=== PATIENT | male | born 1985 | race Caucasian/White ===

== ENCOUNTER → 2021-03-06 | Day surgery (SDC) | payer BC ==
[~2021-03-06] MED LIST: Bupivacaine 0.5% 30 ML SDV ONE; Dexamethasone 4 MG/ML 5 ML MDV ONE; HYDROmorphone 0.5 MG/0.5 ML Syringe IVPUSH PRN; HYDROmorphone 1 MG/ML Syringe IVPUSH ONE; Iopamidol 612 MG/ML 100 ML Bottle IVPUSH ONE; Iopamidol 612 MG/ML 50 ML SDV IVPUSH ONE; Ketorolac 30 MG/ML SDV IVPUSH STA; Lactated Ringers 1,000 ML IV ONE; Lactated Ringers 1,000 ML ONE; Levofloxacin/Dextrose 5%-Water 750 MG in Premix Bag 1 BAG IV ONE; Lidocaine 1% 4 ML ONE; Midazolam 1 MG/ML 2 ML SDV ONE; Ondansetron 4 MG/2 ML SDV IVPUSH ONE; Ondansetron 4 MG/2 ML SDV IVPUSH PRN; Ondansetron 4 MG/2 ML SDV ONE; Propofol 200 MG/20 ML SDV ONE; Rocuronium 50 MG/5 ML Vial ONE; Sodium Chloride 0.9% 10 ML Syringe FLUSH PRN; fentaNYL 100 MCG/2 ML SDV IVPUSH PRN; fentaNYL 250 MCG/5 ML SDV ONE; metroNIDAZOLE/Normal Saline 500 MG in Premix Bag 1 BAG IV ONE
--- NOTE | 2021-03-06 17:21 | EDM.PDOC ---
<Margret Jasmine - Last Filed: 03/06/21 18:24> ED HPI GENERAL MEDICAL PROBLEM - General Chief Complaint: Abdominal Pain Stated Complaint: ABDOMINAL PAIN Time Seen by Provider: 03/06/21 17:05 Source of Information: Reports: Patient History Limitations: Reports: No Limitations - History of Present Illness INITIAL COMMENTS - FREE TEXT/NARRATIVE: Mr. Marco Antonio Mata is a pleasant 35-year-old male who presents for right lower quadrant pain that suddenly started last night. He rates the pain of 7/10, describing it as "sharp". He reports the pain is so bad he can not walk. He has not had a bowel movement in 3 days, so he took stool softener today and that did not help. He denies a history of abdominal surgery. His last meal was this morning. Onset: Sudden, Other (Last night) Duration: Day(s): Location: Reports: Abdomen Quality: Reports: Sharp Right Abdominal Pain Score (Numeric/FACES): 7 - Related Data Allergies Allergy/AdvReac Type Severity Reaction Status Date / Time Penicillins Allergy Anaphylactic Verified 03/06/21 17:00 Shock Home Meds: Home Meds . [No Known Home Meds] 03/06/21 [History] Past Medical History - Past Health History Medical/Surgical History: Denies Medical/Surgical History Social & Family History - Tobacco Use Tobacco Use Status *Q: Current Every Day Tobacco User Years of Tobacco use: 20 Packs/Tins Daily: 1 - Caffeine Use Caffeine Use: Reports: Coffee, Soda - Recreational Drug Use Recreational Drug Use: No ED ROS GENERAL - Review of Systems Review Of Systems: Comprehensive ROS is negative, except as noted in HPI. Constitutional: Reports: No Symptoms HEENT: Reports: No Symptoms Respiratory: Reports: No Symptoms Cardiovascular: Reports: No Symptoms Endocrine: Reports: No Symptoms GI/Abdominal: Reports: Abdominal Pain, Constipation. Denies: Diarrhea : Reports: No Symptoms Musculoskeletal: Reports: No Symptoms Skin: Reports: No Symptoms Neurological: Reports: No Symptoms Psychiatric: Reports: No Symptoms Hematologic/Lymphatic: Reports: No Symptoms Immunologic: Reports: No Symptoms ED EXAM, GI/ABD - Physical Exam Exam: See Below Exam Limited By: No Limitations General Appearance: Alert, WD/WN, Moderate Distress, Other (Temp 96.9, Pulse 99, RR 20, BP 162/88, SpO2 100% on room air. ) Eyes: Bilateral: Normal Appearance (PERRL), EOMI Ears: Hearing Grossly Normal Nose: Normal Inspection Throat/Mouth: Normal Inspection Head: Atraumatic, Normocephalic Neck: Normal Inspection, Supple, Non-Tender Respiratory/Chest: No Respiratory Distress, Lungs Clear, Normal Breath Sounds Cardiovascular: Regular Rate, Rhythm GI/Abdominal Exam: Normal Bowel Sounds, Soft, Rebound, Tender (Positive Mcburney sign and Rovsing sign. ) Back Exam: Normal Inspection Extremities: Normal Inspection, Non-Tender Neurological: Alert, Oriented, Normal Cognition, No Motor/Sensory Deficits Psychiatric: Normal Affect, Normal Mood Skin Exam: Warm, Dry, Intact, Normal Color, No Rash Lymphatic: No Adenopathy Course - Re-Assessments/Exams Free Text/Narrative Re-Assessment/Exam: 03/06/21 17:23 Initial orders include IV insertion, 4mg Zofran, 1mg Dilaudid, CBC, CMP, Lipase, UA, COVID/Influenza swab, CT Abdomen/Pelvis with IV contrast. 03/06/21 18:13 Blood work reveals WBC 21.51, Plt 345. Influenza A&B, COVID, RSV normal. UA wnl. 03/06/21 18:24 Patient and updated on lab results. Patient states he is thirsty. 1,000mL LR bolus ordered. Departure - Departure Disposition: DC/Tfer to [facility] Clinical Impression: Acute appendicitis Qualifiers: Acute appendicitis type: with localized peritonitis Appendicitis gangrene presence: without gangrene Appendicitis perforation presence: without perforation Appendicitis abscess presence: without abscess Qualified Code(s): K35.30 - Acute appendicitis with localized peritonitis, without perforation or gangrene - Discharge Information Referrals: Paul Maldonado PA-C [Primary Care Provider] - Forms: ED Department Discharge <Dru Mario - Last Filed: 03/06/21 18:37> Course - Vital Signs Last Recorded V/S: Last Vital Signs Temp 96.9 F 03/06/21 16:59 Pulse 99 03/06/21 16:59 Resp 20 03/06/21 16:59 BP 162/88 H 03/06/21 16:59 Pulse Ox 100 03/06/21 16:59 - Orders/Labs/Meds Orders: Active Orders 24 hr Category Date Time Status Peripheral IV Care [RC] . DIRECTED Care 03/06/21 17:13 Active Abdomen Pelvis w Cont [CT] Stat Exams 03/06/21 17:14 Taken Lactated Ringers [Ringers, Lactated] 1,000 ml Med 03/06/21 18:23 Active IV .BOLUS Sodium Chloride 0.9% [Saline Flush] Med 03/06/21 17:13 Active 10 ml FLUSH ASDIRECTED PRN Sodium Chloride 0.9% [Saline Flush] Med 03/06/21 17:49 Active 10 ml FLUSH ONETIME PRN Peripheral IV Insertion Adult [OM.PC] Routine Oth 03/06/21 17:13 Ordered Medication Orders Lactated Ringer's (Ringers, Lactated) 1,000 mls @ 1,000 mls/hr IV .BOLUS ONE Stop: 03/06/21 19:22 Sodium Chloride (Sodium Chloride 0.9% 10 Ml Syringe) 10 ml FLUSH ASDIRECTED PRN PRN Reason: Keep Vein Open Sodium Chloride (Sodium Chloride 0.9% 10 Ml Syringe) 10 ml FLUSH ONETIME PRN PRN Reason: IV FLUSH Last Admin: 03/06/21 18:09 Dose: 10 ml Documented by: PATTIE Labs: Laboratory Tests 03/06/21 03/06/21 03/06/21 Range/Units 16:50 17:06 17:33 WBC 21.51 H (4.23-9.07) K/mm3 RBC 5.66 (4.63-6.08) M/mm3 Hgb 16.5 (13.7-17.5) gm/dl Hct 47.9 (40.1-51.0) % MCV 84.6 (79.0-92.2) fl MCH 29.2 (25.7-32.2) pg MCHC 34.4 (32.2-35.5) g/dl RDW Std Deviation 42.0 (35.1-43.9) fL Plt Count 345 H (163-337) K/mm3 MPV 9.4 (9.4-12.3) fl Neut % (Auto) 82.9 H (34.0-67.9) % Lymph % (Auto) 9.3 L (21.8-53.1) % [place] % (Auto) 7.0 (5.3-12.2) % Eos % (Auto) 0.4 L (0.8-7.0) Baso % (Auto) 0.1 (0.1-1.2) % Neut # (Auto) 17.84 H (1.78-5.38) K/mm3 Lymph # (Auto) 2.00 (1.32-3.57) K/mm3 [place] # (Auto) 1.50 H (0.30-0.82) K/mm3 Eos # (Auto) 0.08 (0.04-0.54) K/mm3 Baso # (Auto) 0.03 (0.01-0.08) K/mm3 Sodium (136-145) mEq/L Potassium (3.5-5.1) mEq/L Chloride (98-107) mEq/L Carbon Dioxide (21-32) mEq/L Anion Gap (5-15) BUN (7-18) mg/dL Creatinine (0.7-1.3) mg/dL Est Cr Clr Drug Dosing mL/min Estimated GFR (MDRD) (>60) mL/min BUN/Creatinine Ratio (14-18) Glucose (70-99) mg/dL Calcium (8.5-10.1) mg/dL Total Bilirubin (0.2-1.0) mg/dL AST (15-37) U/L ALT (16-63) U/L Alkaline Phosphatase (46-116) U/L Total Protein (6.4-8.2) g/dl Albumin (3.4-5.0) g/dl Globulin gm/dL Albumin/Globulin Ratio (1-2) Lipase (73-393) U/L Urine Color Yellow (Yellow) Urine Appearance Clear (Clear) Urine pH 5.5 (5.0-8.0) Ur Specific [place] > or = 1.030 (1.005-1.030) Urine Protein Negative (Negative) Urine Glucose (UA) Negative (Negative) Urine Ketones Negative (Negative) Urine Occult Blood Negative (Negative) Urine Nitrite Negative (Negative) Urine Bilirubin Negative (Negative) Urine Urobilinogen 0.2 (0.2-1.0) Ur Leukocyte Esterase Negative (Negative) Influenza Type A RNA Negative (NEGATIVE) RSV RNA (INAAT) Negative (NEGATIVE) Influenza Type B RNA Negative (NEGATIVE) SARS-CoV-2 RNA (ARIEL) Negative (NEGATIVE) 03/06/21 Range/Units 17:33 WBC (4.23-9.07) K/mm3 RBC (4.63-6.08) M/mm3 Hgb (13.7-17.5) gm/dl Hct (40.1-51.0) % MCV (79.0-92.2) fl MCH (25.7-32.2) pg MCHC (32.2-35.5) g/dl RDW Std Deviation (35.1-43.9) fL Plt Count (163-337) K/mm3 MPV (9.4-12.3) fl Neut % (Auto) (34.0-67.9) % Lymph % (Auto) (21.8-53.1) % [place] % (Auto) (5.3-12.2) % Eos % (Auto) (0.8-7.0) Baso % (Auto) (0.1-1.2) % Neut # (Auto) (1.78-5.38) K/mm3 Lymph # (Auto) (1.32-3.57) K/mm3 [place] # (Auto) (0.30-0.82) K/mm3 Eos # (Auto) (0.04-0.54) K/mm3 Baso # (Auto) (0.01-0.08) K/mm3 Sodium 139 (136-145) mEq/L Potassium 3.9 (3.5-5.1) mEq/L Chloride 102 (98-107) mEq/L Carbon Dioxide 25 (21-32) mEq/L Anion Gap 15.9 H (5-15) BUN 10 (7-18) mg/dL Creatinine 1.0 (0.7-1.3) mg/dL Est Cr Clr Drug Dosing 111.01 mL/min Estimated GFR (MDRD) > 60 (>60) mL/min BUN/Creatinine Ratio 10.0 L (14-18) Glucose 110 H (70-99) mg/dL Calcium 9.4 (8.5-10.1) mg/dL Total Bilirubin 0.8 (0.2-1.0) mg/dL AST 15 (15-37) U/L ALT 30 (16-63) U/L Alkaline Phosphatase 56 (46-116) U/L Total Protein 7.9 (6.4-8.2) g/dl Albumin 4.3 (3.4-5.0) g/dl Globulin 3.6 gm/dL Albumin/Globulin Ratio 1.2 (1-2) Lipase 41 L (73-393) U/L Urine Color (Yellow) Urine Appearance (Clear) Urine pH (5.0-8.0) Ur Specific [place] (1.005-1.030) Urine Protein (Negative) Urine Glucose (UA) (Negative) Urine Ketones (Negative) Urine Occult Blood (Negative) Urine Nitrite (Negative) Urine Bilirubin (Negative) Urine Urobilinogen (0.2-1.0) Ur Leukocyte Esterase (Negative) Influenza Type A RNA (NEGATIVE) RSV RNA (INAAT) (NEGATIVE) Influenza Type B RNA (NEGATIVE) SARS-CoV-2 RNA (ARIEL) (NEGATIVE) Meds: Medications Generic Name Dose Route Start Last Admin Trade Name Freq PRN Reason Stop Dose Admin Lactated Ringer's 1,000 mls @ 1,000 mls/hr 03/06/21 18:23 Ringers, Lactated IV 03/06/21 19:22 .BOLUS ONE Sodium Chloride 10 ml 03/06/21 17:13 Sodium Chloride 0.9% 10 Ml Syringe FLUSH ASDIRECTED PRN Keep Vein Open Sodium Chloride 10 ml 03/06/21 17:49 03/06/21 18:09 Sodium Chloride 0.9% 10 Ml Syringe FLUSH 10 ml ONETIME PRN Administration IV FLUSH Discontinued Medications Generic Name Dose Route Start Last Admin Trade Name Frekirstie PRN Reason Stop Dose Admin Hydromorphone HCl 1 mg 03/06/21 17:12 03/06/21 17:34 Hydromorphone 1 Mg/Ml Syringe IVPUSH 03/06/21 17:13 1 mg ONETIME ONE Administration Iopamidol 50 ml 03/06/21 17:49 03/06/21 18:09 Iopamidol 612 Mg/Ml 50 Ml Sdv IVPUSH 03/06/21 17:50 50 ml ONETIME ONE Administration Iopamidol 100 ml 03/06/21 17:49 03/06/21 18:09 Iopamidol 612 Mg/Ml 100 Ml Bottle IVPUSH 03/06/21 17:50 100 ml ONETIME ONE Administration Ondansetron HCl 4 mg 03/06/21 17:12 03/06/21 17:32 Ondansetron 4 Mg/2 Ml Sdv IVPUSH 03/06/21 17:13 4 mg ONETIME ONE Administration - Re-Assessments/Exams Free Text/Narrative Re-Assessment/Exam: 03/06/21 18:32 I examined the patient myself and I agree with Margret's assessment and plan. His WBC is elevated at 21.51. His anion gap was elevated at 15.9. His lipase is negative. His UA shows no UTI. His COVID, influenza and RSV are all negative. The CT shows acute appendicitis. NO evidence of complications. I called Dr Reed and he will come see the patient. Departure - Departure Time of Disposition: 18:40 Condition: Fair Sepsis Event Note (ED) - Focused Exam Vital Signs: Vital Signs Temp Pulse Resp BP Pulse Ox 03/06/21 16:59 96.9 F 99 20 162/88 H 100 - My Orders Last 24 Hours: My Active Orders 03/06/21 17:49 Sodium Chloride 0.9% [Saline Flush] 10 ml FLUSH ONETIME PRN 03/06/21 18:23 Lactated Ringers [Ringers, Lactated] 1,000 ml IV .BOLUS - Assessment/Plan Last 24 Hours: My Active Orders 03/06/21 17:49 Sodium Chloride 0.9% [Saline Flush] 10 ml FLUSH ONETIME PRN 03/06/21 18:23 Lactated Ringers [Ringers, Lactated] 1,000 ml IV .BOLUS
[2021-03-06 17:32] LABS: CORONAVIRUS COVID-19 NAA NEGATIVE (NEGATIVE)
--- NOTE | 2021-03-06 19:02 | PCM.HP.2 ---
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 The pain has been constant and getting progressively worse, located at the right lower quadrant. He has never had such pain. in the ER, WBC is 21,[address] scan shows acute appendicitis. He denies medical problems. He tolerated anesthesia well when he had a posterior spinal fusion a few years ago. He reports anaphylactic reaction to penicillin. He denies taking any prescription medication regularly. Right Abdominal Pain Score (Numeric/FACES): 7 - Related Data Allergies/Adverse Reactions: Allergies Allergy/AdvReac Type Severity Reaction Status Date / Time Penicillins Allergy Anaphylactic Verified 03/06/21 17:00 Shock Home Medications: Home Meds . [No Known Home Meds] 03/06/21 [History] Past Medical History - Past Health History Medical/Surgical History: Denies Medical/Surgical History Social & Family History - Tobacco Use Tobacco Use Status *Q: Current Every Day Tobacco User Years of Tobacco use: 20 Packs/Tins Daily: 1 - Caffeine Use Caffeine Use: Reports: Coffee, Soda - Recreational Drug Use Recreational Drug Use: No H&P Review of Systems - Review of Systems: Review Of Systems: See Below General: Reports: Malaise HEENT: Reports: No Symptoms Pulmonary: Reports: No Symptoms Cardiovascular: Reports: No Symptoms Gastrointestinal: Reports: Abdominal Pain Genitourinary: Reports: No Symptoms Musculoskeletal: Reports: No Symptoms Skin: Reports: No Symptoms Psychiatric: Reports: No Symptoms Neurological: Reports: No Symptoms Hematologic/Lymphatic: Reports: No Symptoms Immunologic: Reports: No Symptoms Exam - Exam Exam: See Below - Vital Signs Vital Signs: Last Vital Signs Temp 36.1 C 03/06/21 16:59 Pulse 99 03/06/21 16:59 Resp 20 03/06/21 16:59 BP 162/88 H 03/06/21 16:59 Pulse Ox 100 03/06/21 16:59 Weight: 123.377 kg - Exam General: Alert, Other (uncomfortable appearing) HEENT: Conjunctiva Clear Neck: Supple Lungs: Normal Respiratory Effort Cardiovascular: Regular Rate GI/Abdominal Exam: Soft, No Mass, Tender Rectal (Males) Exam: Deferred Extremities: Normal Inspection Skin: Warm, Dry Neuro Extensive - Mental Status: Alert, Oriented x3 Psychiatric: Normal Mood - Patient Data Lab Results Last 24 hrs: Laboratory Results - last 24 hr 03/06/21 03/06/21 03/06/21 Range/Units 16:50 17:06 17:33 WBC 21.51 H (4.23-9.07) K/mm3 RBC 5.66 (4.63-6.08) M/mm3 Hgb 16.5 (13.7-17.5) gm/dl Hct 47.9 (40.1-51.0) % MCV 84.6 (79.0-92.2) fl MCH 29.2 (25.7-32.2) pg MCHC 34.4 (32.2-35.5) g/dl RDW Std Deviation 42.0 (35.1-43.9) fL Plt Count 345 H (163-337) K/mm3 MPV 9.4 (9.4-12.3) fl Neut % (Auto) 82.9 H (34.0-67.9) % Lymph % (Auto) 9.3 L (21.8-53.1) % [place] % (Auto) 7.0 (5.3-12.2) % Eos % (Auto) 0.4 L (0.8-7.0) Baso % (Auto) 0.1 (0.1-1.2) % Neut # (Auto) 17.84 H (1.78-5.38) K/mm3 Lymph # (Auto) 2.00 (1.32-3.57) K/mm3 [place] # (Auto) 1.50 H (0.30-0.82) K/mm3 Eos # (Auto) 0.08 (0.04-0.54) K/mm3 Baso # (Auto) 0.03 (0.01-0.08) K/mm3 Sodium (136-145) mEq/L Potassium (3.5-5.1) mEq/L Chloride (98-107) mEq/L Carbon Dioxide (21-32) mEq/L Anion Gap (5-15) BUN (7-18) mg/dL Creatinine (0.7-1.3) mg/dL Est Cr Clr Drug Dosing mL/min Estimated GFR (MDRD) (>60) mL/min BUN/Creatinine Ratio (14-18) Glucose (70-99) mg/dL Calcium (8.5-10.1) mg/dL Total Bilirubin (0.2-1.0) mg/dL AST (15-37) U/L ALT (16-63) U/L Alkaline Phosphatase (46-116) U/L Total Protein (6.4-8.2) g/dl Albumin (3.4-5.0) g/dl Globulin gm/dL Albumin/Globulin Ratio (1-2) Lipase (73-393) U/L Urine Color Yellow (Yellow) Urine Appearance Clear (Clear) Urine pH 5.5 (5.0-8.0) Ur Specific [place] > or = 1.030 (1.005-1.030) Urine Protein Negative (Negative) Urine Glucose (UA) Negative (Negative) Urine Ketones Negative (Negative) Urine Occult Blood Negative (Negative) Urine Nitrite Negative (Negative) Urine Bilirubin Negative (Negative) Urine Urobilinogen 0.2 (0.2-1.0) Ur Leukocyte Esterase Negative (Negative) Influenza Type A RNA Negative (NEGATIVE) RSV RNA (INAAT) Negative (NEGATIVE) Influenza Type B RNA Negative (NEGATIVE) SARS-CoV-2 RNA (ARIEL) Negative (NEGATIVE) 03/06/21 Range/Units 17:33 WBC (4.23-9.07) K/mm3 RBC (4.63-6.08) M/mm3 Hgb (13.7-17.5) gm/dl Hct (40.1-51.0) % MCV (79.0-92.2) fl MCH (25.7-32.2) pg MCHC (32.2-35.5) g/dl RDW Std Deviation (35.1-43.9) fL Plt Count (163-337) K/mm3 MPV (9.4-12.3) fl Neut % (Auto) (34.0-67.9) % Lymph % (Auto) (21.8-53.1) % [place] % (Auto) (5.3-12.2) % Eos % (Auto) (0.8-7.0) Baso % (Auto) (0.1-1.2) % Neut # (Auto) (1.78-5.38) K/mm3 Lymph # (Auto) (1.32-3.57) K/mm3 [place] # (Auto) (0.30-0.82) K/mm3 Eos # (Auto) (0.04-0.54) K/mm3 Baso # (Auto) (0.01-0.08) K/mm3 Sodium 139 (136-145) mEq/L Potassium 3.9 (3.5-5.1) mEq/L Chloride 102 (98-107) mEq/L Carbon Dioxide 25 (21-32) mEq/L Anion Gap 15.9 H (5-15) BUN 10 (7-18) mg/dL Creatinine 1.0 (0.7-1.3) mg/dL Est Cr Clr Drug Dosing 111.01 mL/min Estimated GFR (MDRD) > 60 (>60) mL/min BUN/Creatinine Ratio 10.0 L (14-18) Glucose 110 H (70-99) mg/dL Calcium 9.4 (8.5-10.1) mg/dL Total Bilirubin 0.8 (0.2-1.0) mg/dL AST 15 (15-37) U/L ALT 30 (16-63) U/L Alkaline Phosphatase 56 (46-116) U/L Total Protein 7.9 (6.4-8.2) g/dl Albumin 4.3 (3.4-5.0) g/dl Globulin 3.6 gm/dL Albumin/Globulin Ratio 1.2 (1-2) Lipase 41 L (73-393) U/L Urine Color (Yellow) Urine Appearance (Clear) Urine pH (5.0-8.0) Ur Specific [place] (1.005-1.030) Urine Protein (Negative) Urine Glucose (UA) (Negative) Urine Ketones (Negative) Urine Occult Blood (Negative) Urine Nitrite (Negative) Urine Bilirubin (Negative) Urine Urobilinogen (0.2-1.0) Ur Leukocyte Esterase (Negative) Influenza Type A RNA (NEGATIVE) RSV RNA (INAAT) (NEGATIVE) Influenza Type B RNA (NEGATIVE) SARS-CoV-2 RNA (ARIEL) (NEGATIVE) Result Diagrams: 03/06/21 17:33 03/06/21 17:33 Sepsis Event Note - Focused Exam Vital Signs: Vital Signs Temp Pulse Resp BP Pulse Ox 03/06/21 16:59 36.1 C 99 20 162/88 H 100 Problem List Initiated/Reviewed/Updated: Yes Orders Last 24hrs: Active Orders 24 hr Category Date Time Status Peripheral IV Care [RC] . DIRECTED Care 03/06/21 17:13 Active NPO Now [Nothing per Oral Now Diet] [DIET] Diet 03/07/21 Breakfast Ordered Abdomen Pelvis w Cont [CT] Stat Exams 03/06/21 17:14 Taken Lactated Ringers [Ringers, Lactated] 1,000 ml Med 03/06/21 18:23 Active IV .BOLUS Levofloxacin/Dextrose 5%-Water [Levaquin in D5W 750 MG/ Med 03/06/21 18:57 Ordered 150 ML] 750 mg Premix Bag 1 bag IV ONETIME Sodium Chloride 0.9% [Saline Flush] Med 03/06/21 17:13 Active 10 ml FLUSH ASDIRECTED PRN Sodium Chloride 0.9% [Saline Flush] Med 03/06/21 17:49 Active 10 ml FLUSH ONETIME PRN metroNIDAZOLE/Normal Saline [Flagyl in NS 500 MG/100 ML Med 03/06/21 18:59 Ordered ] 500 mg Premix Bag 1 bag IV ONETIME Peripheral IV Insertion Adult [OM.PC] Routine Oth 03/06/21 17:13 Ordered Schedule Procedure [COMM] Routine Oth 03/06/21 18:59 Ordered Medication Orders Lactated Ringer's (Ringers, Lactated) 1,000 mls @ 1,000 mls/hr IV .BOLUS ONE Stop: 03/06/21 19:22 Last Admin: 03/06/21 18:42 Dose: 1,000 mls/hr Documented by: BIRDIE Levofloxacin/Dextrose 750 mg/ (Premix) 150 mls @ 100 mls/hr IV ONETIME ONE Stop: 03/06/21 20:26 Metronidazole 500 mg/ Premix 100 mls @ 100 mls/hr IV ONETIME ONE Stop: 03/06/21 19:58 Sodium Chloride (Sodium Chloride 0.9% 10 Ml Syringe) 10 ml FLUSH ASDIRECTED PRN PRN Reason: Keep Vein Open Sodium Chloride (Sodium Chloride 0.9% 10 Ml Syringe) 10 ml FLUSH ONETIME PRN PRN Reason: IV FLUSH Last Admin: 03/06/21 18:09 Dose: 10 ml Documented by: [email or web address] Assessment/Plan Comment:: acute appendicitis, plan for laparoscopic appendectomy - Mortality Measure Prognosis:: Good
--- NOTE | 2021-03-06 19:10 | PCM.PRNOTE ---
- Free Text/Narrative Note: Date: 03/06/2021 Operation: laparoscopic appendectomy Indication: acute appendicitis Surgeon: Salvatore Reed MD Pre-incision antibiotics: IV levofloxacin and metronidazole; patient is penicillin-allergic EBL: 10 cc DVT Ppx: SCD Findings: acute uncomplicated appendicitis Detailed Report: The patient was taken to the operating room and placed on the table in supine position. Timeout was performed and general endotracheal anesthesia was initiated. Abdominal hair was clipped and the patient's left arm was tucked at his side. The abdomen was prepped and draped in usual sterile fashion. A Veress needle was placed at the left upper quadrant in order to establish pneumoperitoneum. Once pressure reached 15 mmHg, air was aspirated with a needle and syringe just inferior to the umbilicus. A 12 mm bladed trocar was inserted at this site and a 5 mm 30 degree laparoscope was inserted into the abdomen. There appeared to be no injury from Veress needle placement and the needle was removed. 5 mm ports were placed at the left lower quadrant and at the suprapubic region along the midline. The patient was positioned in Trendelenburg and rotated towards the surgeon standing on the patient's left side. Graspers were used to expose the appendix seen coming off of the cecum. The appendix was severely inflamed with adherent terminal ileum and surrounding visceral fat. The appendix was grasped and retracted anteriorly and inferiorly after being freed up. A [place] LigaSure was used to create a window in the mesoappendix at the base of the appendix. The appendix was stapled flush with the base of the cecum using two 45 mm vascular load on a laparoscopic linear cutting stapler. The mesoappendix was divided using the [place] LigaSure. The specimen was placed in an Endo Catch bag and removed through the umbilical port site. There was a fair amount of murky reactive fluid in the dissection field and this was suctioned. The umbilical port site was closed at the level of fascia with 0 Vicryl using laparoscopic suture passer. The left lateral port was removed under laparoscopic visualization and hemostasis was satisfactory. Pneumoperitoneum was released and the suprapubic port was removed. All skin incisions were closed with running subcuticular Vicryl suture and dressed with Dermabond. A total of 30 cc 0.5% Marcaine was used for local anesthetic throughout the case. The patient tolerated the procedure well.
--- NOTE | 2021-03-06 19:13 | PCM.PREANE ---
Preanesthetic Assessment - Procedure Proposed Procedure: lap appy - Anesthesia/Transfusion/Family Hx Anesthesia History: Prior Anesthesia Without Reaction Family History of Anesthesia Reaction: No Transfusion History: No Prior Transfusion(s) - Review of Systems General: Chills (arely), Night Sweats Pulmonary: No Symptoms Cardiovascular: No Symptoms Gastrointestinal: Abdominal Pain (since last night), Nausea (today) Neurological: No Symptoms Other: Reports: None - Physical Assessment NPO Status Date: 03/06/21 (999) NPO Status Time: 10:00 (sips today of water) Vital Signs: Last Vital Signs Temp 96.9 F 03/06/21 16:59 Pulse 99 03/06/21 16:59 Resp 20 03/06/21 16:59 BP 162/88 H 03/06/21 16:59 Pulse Ox 100 03/06/21 16:59 Height: 6 ft Weight: 123.377 kg ASA Class: 2E Mental Status: Alert & Oriented x3 Airway Class: Mallampati = 2 Dentition: Reports: Normal Dentition Thyro-Mental Finger Breadths: 3 Mouth Opening Finger Breadths: 2 ROM/Head Extension: Full Lungs: Clear to Auscultation, Normal Respiratory Effort, Decreased Breath Sounds Cardiovascular: Regular Rate, Regular Rhythm - Lab Values: Laboratory Last Values WBC 21.51 K/mm3 (4.23-9.07) H 03/06/21 17:33 RBC 5.66 M/mm3 (4.63-6.08) 03/06/21 17:33 Hgb 16.5 gm/dl (13.7-17.5) 03/06/21 17:33 Hct 47.9 % (40.1-51.0) 03/06/21 17:33 MCV 84.6 fl (79.0-92.2) 03/06/21 17:33 MCH 29.2 pg (25.7-32.2) 03/06/21 17:33 MCHC 34.4 g/dl (32.2-35.5) 03/06/21 17:33 RDW Std Deviation 42.0 fL (35.1-43.9) 03/06/21 17:33 Plt Count 345 K/mm3 (163-337) H 03/06/21 17:33 MPV 9.4 fl (9.4-12.3) 03/06/21 17:33 Neut % (Auto) 82.9 % (34.0-67.9) H 03/06/21 17:33 Lymph % (Auto) 9.3 % (21.8-53.1) L 03/06/21 17:33 [place] % (Auto) 7.0 % (5.3-12.2) 03/06/21 17:33 Eos % (Auto) 0.4 (0.8-7.0) L 03/06/21 17:33 Baso % (Auto) 0.1 % (0.1-1.2) 03/06/21 17:33 Neut # (Auto) 17.84 K/mm3 (1.78-5.38) H 03/06/21 17:33 Lymph # (Auto) 2.00 K/mm3 (1.32-3.57) 03/06/21 17:33 [place] # (Auto) 1.50 K/mm3 (0.30-0.82) H 03/06/21 17:33 Eos # (Auto) 0.08 K/mm3 (0.04-0.54) 03/06/21 17:33 Baso # (Auto) 0.03 K/mm3 (0.01-0.08) 03/06/21 17:33 Sodium 139 mEq/L (136-145) 03/06/21 17:33 Potassium 3.9 mEq/L (3.5-5.1) 03/06/21 17:33 Chloride 102 mEq/L (98-107) 03/06/21 17:33 Carbon Dioxide 25 mEq/L (21-32) 03/06/21 17:33 Anion Gap 15.9 (5-15) H 03/06/21 17:33 BUN 10 mg/dL (7-18) 03/06/21 17:33 Creatinine 1.0 mg/dL (0.7-1.3) 03/06/21 17:33 Est Cr Clr Drug Dosing 111.01 mL/min 03/06/21 17:33 Estimated GFR (MDRD) > 60 mL/min (>60) 03/06/21 17:33 BUN/Creatinine Ratio 10.0 (14-18) L 03/06/21 17:33 Glucose 110 mg/dL (70-99) H 03/06/21 17:33 Calcium 9.4 mg/dL (8.5-10.1) 03/06/21 17:33 Total Bilirubin 0.8 mg/dL (0.2-1.0) 03/06/21 17:33 AST 15 U/L (15-37) 03/06/21 17:33 ALT 30 U/L (16-63) 03/06/21 17:33 Alkaline Phosphatase 56 U/L (46-116) 03/06/21 17:33 Total Protein 7.9 g/dl (6.4-8.2) 03/06/21 17:33 Albumin 4.3 g/dl (3.4-5.0) 03/06/21 17:33 Globulin 3.6 gm/dL 03/06/21 17:33 Albumin/Globulin Ratio 1.2 (1-2) 03/06/21 17:33 Lipase 41 U/L (73-393) L 03/06/21 17:33 Urine Color Yellow (Yellow) 03/06/21 17:06 Urine Appearance Clear (Clear) 03/06/21 17:06 Urine pH 5.5 (5.0-8.0) 03/06/21 17:06 Ur Specific [place] > or = 1.030 (1.005-1.030) 03/06/21 17:06 Urine Protein Negative (Negative) 03/06/21 17:06 Urine Glucose (UA) Negative (Negative) 03/06/21 17:06 Urine Ketones Negative (Negative) 03/06/21 17:06 Urine Occult Blood Negative (Negative) 03/06/21 17:06 Urine Nitrite Negative (Negative) 03/06/21 17:06 Urine Bilirubin Negative (Negative) 03/06/21 17:06 Urine Urobilinogen 0.2 (0.2-1.0) 03/06/21 17:06 Ur Leukocyte Esterase Negative (Negative) 03/06/21 17:06 Influenza Type A RNA Negative (NEGATIVE) 03/06/21 16:50 RSV RNA (INAAT) Negative (NEGATIVE) 03/06/21 16:50 Influenza Type B RNA Negative (NEGATIVE) 03/06/21 16:50 SARS-CoV-2 RNA (ARIEL) Negative (NEGATIVE) 03/06/21 16:50 - Allergies Allergies/Adverse Reactions: Allergies Allergy/AdvReac Type Severity Reaction Status Date / Time Penicillins Allergy Anaphylactic Verified 03/06/21 17:00 Shock - Blood Blood Available: No - Acknowledgements Anesthesia Type Planned: General Anesthesia Pt an Appropriate Candidate for the Planned Anesthesia: Yes Alternatives and Risks of Anesthesia Discussed w Pt/Guardian: Yes Pt/Guardian Understands and Agrees with Anesthesia Plan: Yes PreAnesthesia Questionnaire - Past Health History Medical/Surgical History: Denies Medical/Surgical History Cardiovascular History: Reports: None Respiratory History: Reports: None Gastrointestinal History: Reports: Other (See Below) (constipation last few days) Genitourinary History: Reports: None Musculoskeletal History: Reports: None Neurological History: Reports: None Psychiatric History: Reports: None Endocrine/Metabolic History: Reports: Obesity/BMI 30+ Oncologic (Cancer) History: Reports: None - Past Surgical History Male Surgical History: Reports: Other (See Below) (cyst groin) Neurological Surgical History: Reports: Spinal Fusion - SUBSTANCE USE Tobacco Use Status *Q: Current Every Day Tobacco User Tobacco Use Within Last Twelve Months: Snuff/Dip Second Hand Smoke Exposure: No Days Per Week of Alcohol Use: 1 Recreational Drug Use History: No - HOME MEDS Home Medications: Home Meds oxyCODONE 5 mg PO Q4H PRN #15 tab 03/06/21 [Rx] - CURRENT (IN HOUSE) MEDS Current Meds: Current Medications Lactated Ringer's (Ringers, Lactated) 1,000 mls @ 1,000 mls/hr IV .BOLUS ONE Stop: 03/06/21 19:22 Last Admin: 03/06/21 18:42 Dose: 1,000 mls/hr Documented by: Levofloxacin/Dextrose 750 mg/ (Premix) 150 mls @ 100 mls/hr IV ONETIME ONE Stop: 03/06/21 20:26 Metronidazole 500 mg/ Premix 100 mls @ 100 mls/hr IV ONETIME ONE Stop: 03/06/21 19:58 Sodium Chloride (Sodium Chloride 0.9% 10 Ml Syringe) 10 ml FLUSH ASDIRECTED PRN PRN Reason: Keep Vein Open Sodium Chloride (Sodium Chloride 0.9% 10 Ml Syringe) 10 ml FLUSH ONETIME PRN PRN Reason: IV FLUSH Last Admin: 03/06/21 18:09 Dose: 10 ml Documented by: Discontinued Medications Bupivacaine HCl (Bupivacaine 0.5% 30 Ml Sdv) Confirm Administered Dose 30 ml .ROUTE .STK-MED ONE Stop: 03/06/21 19:03 Hydromorphone HCl (Hydromorphone 1 Mg/Ml Syringe) 1 mg IVPUSH ONETIME ONE Stop: 03/06/21 17:13 Last Admin: 03/06/21 17:34 Dose: 1 mg Documented by: Hydromorphone HCl (Hydromorphone 1 Mg/Ml Syringe) 1 mg IVPUSH ONETIME ONE Stop: 03/06/21 18:42 Last Admin: 03/06/21 18:54 Dose: 1 mg Documented by: Iopamidol (Iopamidol 612 Mg/Ml 50 Ml Sdv) 50 ml IVPUSH ONETIME ONE Stop: 03/06/21 17:50 Last Admin: 03/06/21 18:09 Dose: 50 ml Documented by: Iopamidol (Iopamidol 612 Mg/Ml 100 Ml Bottle) 100 ml IVPUSH ONETIME ONE Stop: 03/06/21 17:50 Last Admin: 03/06/21 18:09 Dose: 100 ml Documented by: Ondansetron HCl (Ondansetron 4 Mg/2 Ml Sdv) 4 mg IVPUSH ONETIME ONE Stop: 03/06/21 17:13 Last Admin: 03/06/21 17:32 Dose: 4 mg Documented by:
--- NOTE | 2021-03-06 20:45 | PCM.POSTAN ---
POST ANESTHESIA ASSESSMENT - MENTAL STATUS Mental Status: Somnolent - VITAL SIGNS Vital Signs: Last Vital Signs Temp 96.9 F 03/06/21 16:59 Pulse 99 03/06/21 16:59 Resp 20 03/06/21 16:59 BP 162/88 H 03/06/21 16:59 Pulse Ox 100 03/06/21 16:59 1839 180/89 94% 110 16 100.7 - RESPIRATORY Respiratory Status: Respiratory Rate WNL, Airway Patent, O2 Saturation Stable, Supplemental Oxygen - CARDIOVASCULAR CV Status: Pulse Rate WNL, Blood Pressure Stable - GASTROINTESTINAL GI Status: No Symptoms - PAIN Pain Score: 0 - POST OP HYDRATION Hydration Status: Adequate & Stable (rests- occ moan-opens eyes to command)
--- NOTE | 2021-03-06 22:11 | PCM48HPAN ---
Post Anesthesia Note - EVALUATION WITHIN 48HRS OF ANESTHETIC Vital Signs in Normal Range: Yes Patient Participated in Evaluation: Yes Respiratory Function Stable: Yes Airway Patent: Yes Cardiovascular Function Stable: Yes Hydration Status Stable: Yes Pain Control Satisfactory: Yes Nausea and Vomiting Control Satisfactory: Yes Mental Status Recovered: Yes Vital Signs: Last Vital Signs Temp 99.1 F 03/06/21 22:00 Pulse 100 03/06/21 22:00 Resp 18 03/06/21 22:00 BP 140/75 03/06/21 22:00 Pulse Ox 92 L 03/06/21 22:00 - COMMENTS/OBSERVATIONS Free Text/Narrative:: up to bathroom-n states feels good.
--- NOTE | 2021-03-07 09:25 | CT ---
EXAM: CT ABDOMEN PELVIS WITH CONTRAST LOCATION: [facility] [employer] DATE/TIME: 03/06/2021 5:58 PM INDICATION: Rlq pain COMPARISON: None. TECHNIQUE: CT scan of the abdomen and pelvis was performed following injection of IV contrast. Multiplanar reformats were obtained. Dose reduction techniques were used. CONTRAST: isovue 300 125 FINDINGS: LOWER CHEST: Normal. HEPATOBILIARY: Fatty infiltration of the liver. PANCREAS: Normal. SPLEEN: Normal. ADRENAL GLANDS: Normal. KIDNEYS/BLADDER: No renal calculi or hydronephrosis. BOWEL: The appendix is located within the right lower quadrant and is dilated and inflamed measuring 11 mm. Edematous changes in the adjacent mesentery. No evidence for perforation, abscess, or bowel obstruction. LYMPH NODES: Normal. VASCULATURE: Unremarkable. PELVIC ORGANS: Trace free pelvic fluid. MUSCULOSKELETAL: Posterior spinal fusion between L5 and S1. IMPRESSION: 1. Acute appendicitis. No evidence for complications. SIGNED BY: Frankie Bonilla MD 03/06/2021 7:25 PM [facility]
== END | disposition home or self-care (01) ==
LOC: JD.ED 16:45 → JD.SDS 18:57
PROVIDERS: ATTEND Surgery
DX: K35.80 Unspecified acute appendicitis (principal); F17.210 Nicotine dependence, cigarettes, uncomplicated; Z01.812 Encounter for preprocedural laboratory examination; Z20.822 Contact with and (suspected) exposure to COVID-19; Z88.0 Allergy status to penicillin
CPT/HCPCS: 00840; 0241U; 36415; 74177; 74177-26; 80053; 81003; 83690; 85025; 96365; 96375; 96376; 99140; 99285-25; J1100; J1170; J1885; J1956; J2250; J2405; J2704; J2710; J3010; J3490; J7120; Q9967